=== PATIENT | female | born 1955 | race Caucasian/White ===

== ENCOUNTER → 2018-01-08 | Outpatient (CLI) | payer MEDICAID | LOC: BMCIMAGING 12:58 | DX: M25.551 Pain in right hip (principal); M54.5 Low back pain; I70.0 Atherosclerosis of aorta ==

== ENCOUNTER 2019-01-15 17:20 | Emergency (ER) | payer MEDICAID | END 2019-01-15 18:50 | disposition home or self-care (01) ==